=== PATIENT | female | born 1995 | race Caucasian/White ===

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

== ENCOUNTER 2017-12-16 05:21 | Emergency (ER) | payer BC ==
[2017-12-16 05:26] VITALS: TEMP 98.4; BMI 23.3
[2017-12-16] MEDS ORDERED: SODIUM CHLORIDE 1,000 ML IV ONE ×2 (05:34→07:16)
[2017-12-16] MEDS ORDERED: ONDANSETRON 4 MG/2 ML VIAL IVPB ONE (05:34)
[2017-12-16] MEDS ORDERED: morphine CARPU-JECT 4 MG/1 ML DISP.SYRIN IVPUSH ONE ×2 (05:34→07:10)
--- NOTE | 2017-12-16 05:34 | PDOC ---
History of Present Illness - General Chief Complaint: Pain Stated Complaint: ABD PAIN Time Seen by Provider: 12/16/17 05:27 History Source: Patient Exam Limitations: No Limitations - History of Present Illness Initial Comments: 12/16/17 05:31 This is a 22-year-old female who comes in complaining of diffuse abdominal pain but upper worse than lower with radiation to her back.. Patient said that she has a history of abdominal pain and constipation for which he was seeing a doctor. Patient said her doctor told her she needs a CAT scan for the constipation. Patient comes in now with the pain complaining of some nausea and vomited times one. Patient said her last bowel movement was her last bowel movement was yesterday. Patient denies any fevers or chills. PAST MEDICAL HISTORY: no significant history PAST SURGICAL HISTORY: no significant history FAMILY HISTORY: no pertinant history SOCIAL HISTORY: Pt lives with family and is employed. MEDICATIONS: reviewed ALLERGIES: As per nursing notes Review of Systems General: No fevers or chills, no weakness, no weight loss HEENT: No change in vision. No sore throat,. No ear pain CardioVascular: No chest pain or shortness of breath Respiratory:No cough, or wheezing. Gastrointestinal: + nausea, + vomitting, no diarrhea or + constipation, No rectal bleeding Genitourinary: No dysuria, hematuria, or frequency Musculoskeletal: No joint or muscle pain or swelling Neurologic: No headache, vertigo, dizziness or loss of consciousness Psychiatric: nor depression Skin: No rashes or easy bruising Endocrine: no increased thirst or abnormal weight change Allergic: no skin or latex allergy All other systems reviewed and normal Exam: General: Well-nourished well-developed individual, crying secondary to pain HEENT: Throat: Normal, tonsils normal, no erythema or exudate Neck: Supple, no meningeal signs, no lymphadenopathy Eyes::Pupils equal reactive and round, extraocular motion intact Chest: Nontender to palpation Cardiac: S1-S2 normal, regular rate and rhythm, no murmurs rubs or gallops Respiratory: Lungs clear to auscultation bilateral Abdomen: Soft, sl distended, normal bowel sounds, tender to palpation diffusely but more tender epigastric area. + Momentary guarding. No rebound Extremities: Warm, dry, no cyanosis, clubbing, or edema Skin: No rashes Neuro: Alert and oriented x3, CN II - XII intact, nonfocal exam with normal strength, normal sensation, normal reflexes, normal gait, Psych: Normal mood and affect 07:00 Care of this patient was transferred to Dr. Mir at 7 AM. Patient's workup is still pending including labs and CAT scan. Case discussed in detail with oncoming Emergency Physician including history, physical exam and ancillary studies. Oncoming Emergency Physician has assumed care for the patient and will complete the evaluation and treatment. Patient is aware of the plan. Pt is clinically unchanged and stable. Past History - Past Medical History Allergies/Adverse Reactions: Allergies Allergy/AdvReac Type Severity Reaction Status Date / Time propofol Allergy Severe Verified 12/28/16 19:37 amoxicillin Allergy Intermediate Swelling Verified 12/28/16 19:37 ibuprofen Allergy Intermediate Swelling Verified 12/28/16 19:37 Penicillins Allergy Intermediate Swelling Verified 12/28/16 19:37 Iodinated Contrast- Oral and Allergy Mild Itching Verified 12/17/17 09:10 IV Dye Home Medications: Ambulatory Orders NK [No Known Home Medication] 12/16/17 COPD: No GI Disorders: Yes (CONSTIPATION) - Immunization History Immunization Up to Date: Yes - Suicide/Smoking/Psychosocial Hx Smoking History: Never smoked Have you smoked in the past 12 months: No Number of Cigarettes Smoked Daily: 0 Information on smoking cessation initiated: No Hx Alcohol Use: No Drug/Substance Use Hx: No Substance Use Type: None *Physical Exam - Vital Signs Last Vital Signs Temp Pulse Resp BP Pulse Ox 98.4 F 127 H 14 123/84 98 12/16/17 05:23 12/16/17 05:23 12/16/17 05:23 12/16/17 05:23 12/16/17 05:23 ED Treatment Course - LABORATORY CBC & Chemistry Diagram: 12/16/17 05:50 12/16/17 05:50 *DC/Admit/Observation/Transfer Diagnosis at time of Disposition: Generalized abdominal pain - Discharge Dispostion Disposition: HOME Condition at time of disposition: Stable - Referrals - Patient Instructions Printed Discharge Instructions: DI for Abdominal Pain-Adult, DI for Constipation, DI for Irritable Bowel Syndrome Additional Instructions: Activity as tolerated. Stay hydrated. Blood tests, a urine test, and a CT of the abdomen/pelvis showed no acute abnormalities other than constipation. As discussed, we spoke with Dr. Melendez's office and RN DOCUMENTATION and they will be in touch with you this afternoon regarding next steps and a likely appointment tomorrow. Wait for Dr. Melendez's advice as to whether to continue/increase/stop the medications he prescribed. If you have any throat itching or rash, take Benadryl 50mg orally as you were given in the ED. If you have throat tightness or difficulty breathing, return to the ER. Consider getting allergy testing to see if you're allergic to IV contrast dye. You should follow up with Dr. Melendez today regarding today's emergency department visit. Return to the emergency department for any new or concerning symptoms, particularly persistent or intolerable pain, fevers or chills, bloody vomit or stool, throat tightness or rash. - Post Discharge Activity
[2017-12-16] MEDS ORDERED: morphine SULFATE 4 MG/ML VIAL ONE ×2 (05:41→07:16)
[2017-12-16] MEDS ORDERED: ONDANSETRON 4 MG/2 ML VIAL ONE ×2 (05:41→05:49)
[2017-12-16 06:24] LABS: BASO % 0.3 % (0-2.0); EOS % 0.2 % (0-4.5); HEMATOCRIT 46.4 % (32.4-45.2); HEMOGLOBIN 15.7 GM/dL (10.7-15.3); LYMPH % 23.2 % (8-40); MCH 30.5 pg (25.7-33.7); MCHC 33.8 g/dl (32.0-36.0); MEAN CELL VOLUME 90.3 fl (80-96); MEAN PLT VOLUME 8.6 fl (7.5-11.1); MONO % 3.9 % (3.8-10.2); NEUT % 72.4 % (42.8-82.8); PLATELET COUNT 291 K/MM3 (134-434); RBC 5.14 M/mm3 (3.60-5.2); RDW 13.3 % (11.6-15.6); WHITE BLOOD COUNT 10.1 K/mm3 (4.0-10.0)
[2017-12-16 06:34] LABS: URINE APPEARANCE CLEAR; URINE BILIRUBIN NEGATIVE (<2.0 mg/dL); URINE BLOOD 2+ (NEGATIVE); URINE COLOR YELLOW; URINE GLUCOSE (UA) NEGATIVE (NEGATIVE); URINE KETONE NEGATIVE (NEGATIVE); URINE LEUK ESTERASE NEGATIVE (NEGATIVE); URINE NITRITE NEGATIVE (NEGATIVE); URINE UROBILINOGEN NEGATIVE mg/dL (0.2-1.0)
[2017-12-16 06:36] LABS: HCG,QUALITATIVE URINE NEGATIVE
[2017-12-16 06:37] LABS: URINE PROTEIN 1+ (NEGATIVE)
[2017-12-16 06:55] LABS: EPI CELLS RARE /HPF (FEW); URINE BACTERIA RARE /hpf (NONE SEEN)
[2017-12-16 07:15] LABS: ALBUMIN 3.6 g/dl (3.4-5.0); ALK PHOS 101 U/L (45-117); ANION GAP 8 (8-16); BLOOD UREA NITROGEN 18 mg/dL (7-18); CHLORIDE 106 mmol/L (98-107); CO2 27 mmol/L (21-32); GLUCOSE,RANDOM 97 mg/dL (74-106); SGOT/AST 22 U/L (15-37); SGPT/ALT 26 U/L (12-78); SODIUM 141 mmol/L (136-145); TOT PROT 7.4 g/dl (6.4-8.2)
--- NOTE | 2017-12-16 07:21 | PDOC ---
*Physical Exam - Vital Signs Last Vital Signs Temp Pulse Resp BP Pulse Ox 98.4 F 127 H 14 123/84 98 12/16/17 05:23 12/16/17 05:23 12/16/17 05:23 12/16/17 05:23 12/16/17 05:23 - Physical Exam Comments: 12/16/17 07:17 afebrile, tachycardia improved now 100 lying in stretcher Asleep but easily arousable Dry mucosa Abdomen is soft, nondistended. Diffusely tender with guarding greatest in the upper abdomen, some rebound. Bowel sounds are within normal limits. No rash or lymphadenopathy ED Treatment Course - LABORATORY CBC & Chemistry Diagram: 12/16/17 05:50 12/16/17 05:50 - ADDITIONAL ORDERS Additional order review: Laboratory Results 12/16/17 05:50 Urine Color Yellow Urine Appearance Clear Urine pH 5.0 Ur Specific [place] 1.025 Urine Protein 1+ H Urine Glucose (UA) Negative Urine Ketones Negative Urine Blood 2+ H Urine Nitrite Negative Urine Bilirubin Negative Urine Urobilinogen Negative Ur Leukocyte Esterase Negative Urine WBC (Auto) 3 Urine RBC (Auto) 1 Ur Epithelial Cells Rare Urine Bacteria Rare Urine HCG, Qual Negative 12/16/17 05:50 RBC 5.14 MCV 90.3 MCHC 33.8 RDW 13.3 MPV 8.6 Neutrophils % 72.4 Lymphocytes % 23.2 Monocytes % 3.9 Eosinophils % 0.2 Basophils % 0.3 - Medications Given in the ED: ED Medications Discontinued Medications Generic Name Dose Route Start Last Admin Trade Name Freq PRN Reason Stop Dose Admin Sodium Chloride 1,000 mls @ 1,000 mls/hr 12/16/17 05:34 12/16/17 05:37 Normal Saline - IV 12/16/17 06:33 1,000 mls/hr .Q1H ONE Administration Morphine Sulfate 4 mg 12/16/17 05:34 12/16/17 05:37 Morphine Injection - IVPUSH 12/16/17 05:35 4 mg ONCE ONE Administration Ondansetron HCl 8 mg 12/16/17 05:34 12/16/17 05:37 Zofran Injection IVPB 12/16/17 05:35 8 mg ONCE ONE Administration Medical Decision Making - Medical Decision Making 12/16/17 07:18 Received signout on this 22-year-old female under evaluation by gastroenterology who presents with increased abdominal pain. She was tachycardic on arrival, has a relatively normal white count of 10.1, a clear urinalysis and negative urine , and pending chemistries. Plan at sign out was to follow-up chemistries, perform CT of the abdomen and pelvis as planned by her marina porter, and reassess. Patient has history of right hernia repair 4 years ago, cholecystectomy about one year ago complicated by chronic abdominal complaints predominantly categorized by upper abdominal pain that has been unremitting, managed by GI. She has bouts of constipation, and over the last 2 weeks this has increased. She took laxatives and ultimately an enema, had a very small bowel movement yesterday, but presents for evaluation today with increasing upper abdominal pain and vomiting of undigested food this morning. No fevers or chills. She had an endoscopy prior to her cholecystectomy last year which was reportedly normal, she has been prescribed PPI but is noncompliant. She denies excessive NSAID or alcohol use, no drug use, has no known family history of inflammatory bowel disease. Patient's pain is returning, will give another dose of morphine and continue to hydrate with IV fluids. Chemistries pending but will add amylase/lipase. Awaiting CAT scan. 12/16/17 09:18 Chemistries, including amylase and lipase and LFTs, are normal. Awaiting CAT scan. 12/16/17 09:59 CT shows constipation/fecal retention without any other acute abnormalities. Patient is sitting up texting on her cell phone, but still in intermittent discomfort. Discussed at length with patient and mom potential diagnoses of more nonspecific diagnoses (dysmotility, IBS, Mediterranean fever, SIBO, etc). They have started with a new GI doc last week with attempts at Lincess and Bentyl without relief. Spoke to Dr. Melendez's office with Kenisha, the PHYSICAL FITNESS TEACHER that saw Manda last week. Plan is to speak with Dr. Melendez this afternoon, they will call pt later today and likely see her in the office tomorrow. Pt and mom are comfortable with that plan. In the meantime, pt's throat feels a little scratchy. no stridor, no hoarse voice, no difficulty swallowing/breathing, no swelling. Mom is allergic to iv contrast dye. no rash. will give dose of benadryl, observe, then likely proceed with d/c plan to see Dr. Melendez. 12/16/17 10:37 feels well, VS normal, tolerating PO, no allergic reaction sxs. more discussion with mom, will f/u GI, understands return criteria. *DC/Admit/Observation/Transfer Diagnosis at time of Disposition: Generalized abdominal pain - Discharge Dispostion Disposition: HOME Condition at time of disposition: Stable - Referrals - Patient Instructions Printed Discharge Instructions: DI for Constipation, DI for Irritable Bowel Syndrome, DI for Abdominal Pain-Adult Additional Instructions: Activity as tolerated. Stay hydrated. Blood tests, a urine test, and a CT of the abdomen/pelvis showed no acute abnormalities other than constipation. As discussed, we spoke with Dr. Melendez's office and PHYSICAL FITNESS TEACHER and they will be in touch with you this afternoon regarding next steps and a likely appointment tomorrow. Wait for Dr. Melendez's advice as to whether to continue/increase/stop the medications he prescribed. If you have any throat itching or rash, take Benadryl 50mg orally as you were given in the ED. If you have throat tightness or difficulty breathing, return to the ER. Consider getting allergy testing to see if you're allergic to IV contrast dye. You should follow up with Dr. Melendez today regarding today's emergency department visit. Return to the emergency department for any new or concerning symptoms, particularly persistent or intolerable pain, fevers or chills, bloody vomit or stool, throat tightness or rash. - Post Discharge Activity
[2017-12-16 07:34] LABS: BILIRUBIN,TOTAL < 0.1 mg/dL (0.2-1.0)
[2017-12-16 08:18] LABS: AMYLASE 112 U/L (25-115); LIPASE 191 U/L (73-393)
[2017-12-16] MEDS ORDERED: diphenhydrAMINE HCL 25 MG CAPSULE (FP) PO ONE (10:07)
[2017-12-16] MEDS ORDERED: diphenhydrAMINE HCL 50 MG CAPSULE PO ONE (10:16)
[2017-12-16 10:54] VITALS: BP 110/65; PULSE 81
== END 2017-12-16 10:54 | disposition home or self-care (01) ==
LOC: FER 05:21
PROC: 3E033NZ Introduction of Analgesics, Hypnotics, Sedatives into Peripheral Vein, Percutaneous Approach (ICD-10-PCS; principal; 2017-12-16)
PROC: 3E033GC Introduction of Other Therapeutic Substance into Peripheral Vein, Percutaneous Approach (ICD-10-PCS; 2017-12-16)
PROC: 3E0337Z Introduction of Electrolytic and Water Balance Substance into Peripheral Vein, Percutaneous Approach (ICD-10-PCS; 2017-12-16)
DX: R10.9 Unspecified abdominal pain (principal); R10.84 Generalized abdominal pain
CPT/HCPCS: 36415; 74177-TC; 80053; 81003; 81015; 82150; 83690; 84703; 85025; 99283-25; J7030